=== PATIENT | female | born 1995 | race Caucasian/White ===

== ENCOUNTER 2024-02-26 23:46 | Emergency (ER) | payer SELFPAY ==
[~2024-02-26] VITALS: Ht 162.6 cm; Wt 63.5 kg
[2024-02-26 23:56] VITALS: BP_SYST 100; PULSE 99; RESP 18; TEMP 97; O2SAT 99
[2024-02-27] MEDS ORDERED: ALBUTEROL SULFATE 0.083% 2.5 MG/3 ML VIAL.NEB INH ONE (00:27)
[2024-02-27 00:59] VITALS: BP_SYST 100; PULSE 99; RESP 18; TEMP 97.2
[2024-02-27 01:21] VITALS: O2SAT 97
[2024-02-27] MEDS: ALBUTEROL SULFATE 0.083% 2.5 MG/3 ML VIAL.NEB INH ONE (01:21)
== END 2024-02-27 00:59 ==
LOC: SED 23:46
DX: J98.01 Acute bronchospasm (principal); R07.89 Other chest pain
CPT/HCPCS: 93005; 94640; 99283